=== PATIENT | male | born 1945 | race Caucasian/White ===

== ENCOUNTER → 2021-01-08 | Outpatient (CLI) | payer OTHER, MEDICARE | LOC: EXRD 14:26 | DX: M25.642 Stiffness of left hand, not elsewhere classified (principal); R76.8 Other specified abnormal immunological findings in serum; M25.641 Stiffness of right hand, not elsewhere classified; M16.0 Bilateral primary osteoarthritis of hip; M19.042 Primary osteoarthritis, left hand; M19.041 Primary osteoarthritis, right hand | CPT/HCPCS: 73130; 73522 ==